=== PATIENT | male | born 1935 | race Caucasian/White ===

== ENCOUNTER 2016-06-28 08:56 | Outpatient (CLI) ==
[2015-12-20 07:21] VITALS: BMI 45.3
[2016-06-28 13:15] LABS: BILIRUBIN,URINE Negative (NEGATIVE); KETONES,URINE Negative (NEGATIVE); LEUKOCYTE ESTERASE ,URINE 2+ (NEGATIVE); NITRITE,URINE Positive (NEGATIVE); PH,URINE 6.5 (5-9); PROTEIN,URINE Negative (NEGATIVE); URINE, BLOOD Trace-intact (NEGATIVE)
[2016-06-28 13:28] LABS: ADD URINE MICROSCOPIC YES
[2016-06-28 13:33] LABS: BACTERIA,URINE 3+ (NOT PRESENT)
== END 2016-06-28 08:57 | disposition home or self-care (01) ==
LOC: LAB 08:56
PROVIDERS: ATTEND General Practice
DX: N39.0 Urinary tract infection, site not specified (principal)
CPT/HCPCS: 81001; 87086; 87186

== ENCOUNTER 2016-07-06 06:28 | Day surgery (SDC) ==
[2015-12-20 07:21] VITALS: BMI 45.3
[2016-07-06] MEDS ORDERED: DIPRIVAN 20 ML VIAL IVP ONE (08:00)
[2016-07-06 09:37] VITALS: BP 136/83; TEMP 97.5
--- NOTE | 2016-07-07 06:53 | OP ---
INDICATIONS FOR PROCEDURE: 80-year-old gentleman with a history of adenomatous polyps removed 3 years ago presents for colonoscopy. He has had a change in his bowel habits with some pencil thin stools. MEDICATIONS: SEE ANESTHESIA NOTES. PROCEDURE: COLONOSCOPY, SNARE POLYPECTOMY. REPORT: The risks, benefits, alternatives and limitations were discussed in detail with the patient. Informed consent was obtained. After adequate sedation was achieved, a digital rectal exam revealed good tone, no masses. The colonoscope was advanced under direct visual guidance. I was able to advance it fairly easily to the proximal transverse colon where I ran out of colon. I did not have the scope looped. This is typical for him. On prior colonoscopy, he was known to have a long redundant colon. With external pressure and position changes I was able to get the scope into the ascending colon. I could see the cecum. I could see two small polyps in the cecum. These were less than 1 cm in size. I would estimate 5 mm and 6 mm in size at most. Despite our efforts and there were multiple efforts, whenever I would slide the snare in the scope to attempt to remove the polyps this would cause the scope to loop and slip backwards. Despite position changes, external pressure with three different assistance, I was not able to remove these polyps. I also could see approximately 6 or 7 mm slightly raised polyp in the ascending colon that I could not get the scope maneuvered to remove it either. I therefore elected to withdraw the scope. I examined the mucosa in a circumferential manner and examined the remaining colon looking for mucosal abnormalities. In the mid and distal transverse colon there were two polyps about 5 mm in size and 6 mm, both slightly raised, both removed by snare technique and placed in the same pathology jar. In the rectum there was a raised 7 mm polyp that I removed by snare technique. There was noted to be diaz diverticulosis throughout the entire colon. On retroflex view of the anal canal there was 1+ internal hemorrhoids. The prep was adequate. There was retained fecal material from the diverticula mostly in the sigmoid and rectum. The patient tolerated the procedure well with stable vital signs and pulse oximetry throughout. IMPRESSION: 1. Three (3) small less than 1 cm polyp in the ascending colon and cecum NOT removed. 2. Three (3) polyps removed from the transverse and rectum. 3. Diaz diverticulosis. 4. 1+ internal hemorrhoids. 5. Morbid obesity with long redundant colon inhibiting colonoscopy technique. RECOMMENDATIONS: 1. Await pathology results from the three polyps removed. 2. I will discuss with the patient and his today options. The polyps are low risk for turning into malignancy in his lifetime but not a zero risk. There are options of having surgical intervention with right hemicolectomy but that is of significant risk as well given his age and morbid obesity. There is a risk of doing nothing or leaving the polyps alone which is low but not zero. There is also the option of reattempting colonoscopy examination after weight loss, which may be the best option. I will discuss these three options with the patient and if he so chooses we will rediscuss in the office in 6 months with the goal of significant weight loss between now and that office visit for reattempt at colonoscopy. CC: DR. LETY GARCIA
== END 2016-07-06 09:50 | disposition home or self-care (01) ==
LOC: SURG 06:28
PROVIDERS: ATTEND Internal Medicine Gastroenterology
DX: Z86.010 Personal history of colon polyps (principal); D12.3 Benign neoplasm of transverse colon; D12.7 Benign neoplasm of rectosigmoid junction; K63.5 Polyp of colon; K57.30 Diverticulosis of large intestine without perforation or abscess without bleeding; Q43.8 Other specified congenital malformations of intestine; R19.4 Change in bowel habit; K64.8 Other hemorrhoids; E66.01 Morbid (severe) obesity due to excess calories; E11.9 Type 2 diabetes mellitus without complications

== ENCOUNTER 2016-07-12 12:02 | Outpatient (CLI) ==
[2015-12-20 07:21] VITALS: BMI 45.3
== END 2016-07-12 12:03 | disposition home or self-care (01) ==
LOC: LAB 12:02
PROVIDERS: ATTEND General Practice
DX: I48.91 Unspecified atrial fibrillation (principal)
CPT/HCPCS: 36415; 80162

== ENCOUNTER 2016-07-14 02:37 | Emergency (ER) ==
[2016-07-14 02:49] VITALS: BP 143/75; TEMP 97.3; BMI 44.0
--- NOTE | 2016-07-14 03:41 | ED.PDOC ---
General ED Provider: Dr. DAKOTA ROLAND Chief Complaint: GI Bleed Stated Complaint: Burak is a 80 year old male who has a history of Atrial fibrillation who is on the last day of Pardaxa and due to start Eliquis today comes to the ER with bright red blood per recturm. This happened twice when went to the bath room. He had a colonoscopy 2 week ago with removal of polyp.states he has a history of hemorroids. Time Seen by Physician: 03:00 Mode of Arrival: Walk-In Information Source: Patient, Family Exam Limitations: No limitations [facility] T[facility] Documentation Reviewed and Agree: Yes GI Complaint Exam - Rectal Complaint/Exam Patient Complains of: Reports: Rectal bleeding Onset/Duration: tonigh Symptoms Are: Still present Timing: Intermittent Initial Severity: Mild Current Severity: Mild Location: Reports: Rectal Character: Reports: Burning, Itching Aggravating: Reports: None Alleviating: Reports: None Associated Signs and Symptoms: Reports: Rectal bleeding, Bright red blood w/ stool. Denies: Black tarry stool Related History: Reports: Hemorrhoids. Denies: Crohn's, STD, Pilonidal Abcess, Perirectal Abcess, Hx of anal intercourse, Foriegn object Rectal Exam: Present: External hemorrhoids, Heme positive Prostate Exam: Size WNL Differential Diagnoses: Hemorrhoids, Other (colon polyps ) Review of Systems - Review Of Systems Constitutional: Reports: No symptoms Eyes: Reports: No symptoms Ears, Nose, Mouth, Throat: Reports: No symptoms Respiratory: Reports: No symptoms Cardiac: Reports: No symptoms GI: Reports: Rectal bleeding. Denies: No symptoms, Abdomen distended, Abdominal pain, Blood streaked bowels, Constipated, Nausea, Poor appetite, Poor fluid intake, Vomiting : Reports: No symptoms Musculoskeletal: Reports: No symptoms Skin: Reports: No symptoms Neurological: Reports: No symptoms Endocrine: Reports: No symptoms Hematologic/Lymphatic: Reports: No symptoms All Other Systems: Reviewed and Negative Past Medical History - Past Medical History Previously Healthy: No Endocrine: Reports: DM 2 Cardiovascular: Reports: Hypertension, A-Fib Respiratory: Reports: None Hematological: Reports: None Gastrointestinal: Reports: GI Bleed, Other (polyps , Hemorroids) Genitourinary: Reports: None Neuro/Psych: Reports: Other Musculoskeletal: Reports: None Cancer: Reports: None Other Pertinent Past Medical History: TORN DETACHED RETINA LEFT EYE - Surgical History General Surgical History: Reports: Other (RETINA LEFT EYE) - Family History Family History: Reports: Unknown - Social History Smoking Status: Former smoker Hx Substance Use: No Alcohol Screening: None - Immunizations Tetanus Shot up to Date: Yes Physical Exam - Physical Exam Appearance: Obese Pain Distress: Mild Neck: Supple Respiratory: Airway patent, Breath sounds clear, Breath sounds equal, Respirations nonlabored Cardiovascular: RRR, Pulses normal, No rub, No murmur GI/: Soft, Nontender, No masses, Bowel sounds normal, No Organomegaly Musculoskeletal: Normal strength, ROM intact, No edema, No calf tenderness Skin: Warm, Dry, Normal color Psychiatric: Anxious Critical Care Note - Critical Care Note Total Time (mins): 0 Course - Course Hematology/Chemistry: 07/14/16 04:05 07/14/16 04:05 Orders, Labs, Meds: Lab Review 07/14/16 04:05 WBC 9.07 RBC 4.15 L Hgb 12.4 L Hct 38.6 L MCV 93.0 MCH 29.9 MCHC 32.1 RDW Coeff of Sam 14.9 H Plt Count 195 Immature Gran % (Auto) 1.0 Neut % (Auto) 71.0 Lymph % (Auto) 19.1 [place] % (Auto) 7.2 Eos % (Auto) 1.0 Baso % (Auto) 0.7 Immature Gran # (Auto) 0.1 Neut # 6.5 Lymph # 1.7 [place] # 0.7 Eos # 0.1 Baso # 0.1 PT 13.2 H INR 1.28 APTT 39.9 Sodium 138 Potassium 4.3 Chloride 105 Carbon Dioxide 22 L Anion Gap 15.3 BUN 22 H Creatinine 1.00 Estimated GFR (MDRD) 72.00 BUN/Creatinine Ratio 22.00 Glucose 126 H Calcium 9.1 Total Bilirubin 0.69 AST 28 ALT 49 Alkaline Phosphatase 36 L Total Protein 6.7 Albumin 3.6 Globulin 3.1 Albumin/Globulin Ratio 1.16 Stl Occult Blood (IFOB) Positive Stool Occult Blood #2 No specimen received Stool Occult Blood #3 No specimen received Orders Category Date Time Status CBC W/ AUTO DIFF Stat LAB 07/14/16 04:05 Completed CMP [COMPREHENSIVE METABOLIC PANEL] Stat LAB 07/14/16 04:05 Completed OCCULT BLOOD, STOOL Stat LAB 07/14/16 04:05 Completed PT WITH INR Stat LAB 07/14/16 04:05 Completed PTT [PARTIAL THROMBOPLASTIN TIME] Stat LAB 07/14/16 04:05 Completed Hydrocortisone Acetate [Anucort-Hc] MEDS 07/14/16 04:14 Discontinued 1 supp RC ONCE STA Medications Discontinued Medications Generic Name Dose Route Start Last Admin Trade Name Brielle PRN Reason Stop Dose Admin Hydrocortisone Acetate 1 supp 07/14/16 04:14 07/14/16 04:17 Anucort-Hc RC 07/14/16 04:15 1 supp ONCE STA Administration Vital Signs: Temp Pulse Resp BP Pulse Ox 07/14/16 02:40 97.3 F L 83 24 143/75 H 98 Departure - Departure Time of Disposition: 04:45 Disposition: HOME SELF-CARE Discharge Problem: Gastrointestinal hemorrhage, External bleeding hemorrhoids Instructions: Rectal Bleeding (ED) Condition: Fair Pt referred to PMD for follow-up: Yes (in the Morning ) Additional Instructions: Follow up with your PCP in the morning. Stop taking Aspirin and pradaxa or Eloquis until seen by PCP Use Hemorrhoidal suppositories over the counter. Allergies/Adverse Reactions: Allergies codeine Adverse Reaction (Verified 07/14/16 02:49) gatifloxacin [From Tequin] Adverse Reaction (Verified 07/14/16 02:49) phenylbutazone [From Butazolidin] Adverse Reaction (Verified 07/14/16 02:49) Home Medications: Ambulatory Orders Aspirin [Aspirin EC] 81 mg PO DAILY 01/31/13 Diltiazem HCl [Cardizem] 60 mg PO BID 01/31/13 Multivitamin [Multi Vitamin Daily] 1 tab PO DAILY 01/31/13 Sitagliptin Phos/Metformin HCl [Janumet 50-500 mg Tablet] 1 tab PO BID 01/31/13 Sotalol HCl [Sotalol] 40 mg PO BID 01/31/13 Vitamin B Complex 1 tab PO DAILY 01/31/13 Folic Acid 5 tab PO DAILY 06/04/13 Torsemide 10 mg PO DAILY 04/07/15 Valsartan [Diovan] 60 mg PO BID tab-cap 07/03/15 Oxybutynin Chloride [Ditropan Xl] 10 mg PO DAILY 12/20/15 Dabigatran Etexilate Mesylate [Pradaxa] 150 mg PO Q12HR 07/14/16 Disposition Discussed With: Patient, Family
[2016-07-14 04:06] LABS: BASOPHILS # (AUTO) 0.1 K/uL (0-0.2); BASOPHILS % (AUTO) 0.7 % (0.0-3.0); EOSINOPHILS # (AUTO) 0.1 K/ul (0.0-0.7); HEMATOCRIT 38.6 % (42.0-52.0); HEMOGLOBIN 12.4 g/dl (14.0-18.0); LYMPHOCYTES # (AUTO) 1.7 K/uL (0.60-3.4); LYMPHOCYTES % (AUTO) 19.1 (10.0-50.0); MEAN CORPUSCULAR HEMOGLOBIN 29.9 pg (27.0-31.0); MEAN CORPUSCULAR HGB CONC 32.1 (31.8-35.4); MONOCYTES # (AUTO) 0.7 K/uL (0.4-2.0); MONOCYTES % (AUTO) 7.2 (0-10); NEUTROPHILS # (AUTO) 6.5 K/ul (2.0-6.9); PLATELET COUNT 195 10^3/uL (140-440); RED BLOOD COUNT 4.15 10^6/ul (4.70-6.10); WHITE BLOOD COUNT 9.07 K/ul (4.2-10.2)
[2016-07-14 04:08] LABS: OCCULT BLOOD INTERNAL QC 1 INTERNAL QC VALID; OCCULT BLOOD INTERNAL QC 2 INTERNAL QC VALID; OCCULT BLOOD INTERNAL QC 3 INTERNAL QC VALID; OCCULT BLOOD SAMPLE 1 POSITIVE (NEGATIVE); OCCULT BLOOD SAMPLE 2 NO SPECIMEN RECEIVED (NEGATIVE); OCCULT BLOOD SAMPLE 3 NO SPECIMEN RECEIVED (NEGATIVE)
[2016-07-14] MEDS ORDERED: ANU MED RC STA (04:08)
[2016-07-14] MEDS ORDERED: ANUCORT-HC RC STA (04:14)
[2016-07-14 04:20] LABS: PARTIAL THROMBOPLASTIN TIME 39.9 SEC (23.9-40.0); PROTHROMBIN TIME 13.2 SEC (9.3-11.0)
[2016-07-14 04:27] LABS: ALBUMIN 3.6 g/dL (3.4-5.0); ALBUMIN/GLOBULIN RATIO 1.16; ANION GAP 15.3; BILIRUBIN,TOTAL 0.69 mg/dL (0.00-1.20); CALCIUM 9.1 mg/dL (8.2-10.2); POTASSIUM 4.3 mmol/L (3.5-5.1); TOTAL PROTEIN 6.7 g/dL (5.8-8.1)
[2016-07-14] MEDS ORDERED: ANUCORT-HC RC ONE (05:31)
== END 2016-07-14 05:06 | disposition home or self-care (01) ==
LOC: ED 02:37
DX: K92.2 Gastrointestinal hemorrhage, unspecified (principal); K64.4 Residual hemorrhoidal skin tags; I48.91 Unspecified atrial fibrillation; E11.9 Type 2 diabetes mellitus without complications; Z79.01 Long term (current) use of anticoagulants; Z79.899 Other long term (current) drug therapy
CPT/HCPCS: 36415; 80053; 82272; 85025; 85610; 85730; 99283

== ENCOUNTER 2016-07-19 09:19 | Outpatient (CLI) | END 2016-07-19 09:20 | disposition home or self-care (01) | LOC: CAR 09:19 | PROVIDERS: ATTEND General Practice | DX: I48.91 Unspecified atrial fibrillation (principal); R00.1 Bradycardia, unspecified | CPT/HCPCS: 93005; 93010 ==

== ENCOUNTER 2016-08-03 11:19 | Outpatient (CLI) ==
[2016-08-03 13:45] LABS: BASOPHILS % (AUTO) 0.1 % (0.0-3.0); HEMATOCRIT 38.8 % (42.0-52.0); HEMOGLOBIN 12.4 g/dl (14.0-18.0); IMMATURE GRANULOCYTE % (AUTO) 0.7 % (0.0-5.0); LYMPHOCYTES # (AUTO) 0.7 K/uL (0.60-3.4); LYMPHOCYTES % (AUTO) 3.8 (10.0-50.0); MEAN CORPUSCULAR HEMOGLOBIN 30.3 pg (27.0-31.0); MEAN CORPUSCULAR VOLUME 94.9 fl (80.0-94.0); MONOCYTES # (AUTO) 0.7 K/uL (0.4-2.0); MONOCYTES % (AUTO) 3.7 (0-10); NEUTROPHILS # (AUTO) 16.5 K/ul (2.0-6.9); NEUTROPHILS % (AUTO) 91.7; PLATELET COUNT 179 10^3/uL (140-440); RED BLOOD COUNT 4.09 10^6/ul (4.70-6.10); WHITE BLOOD COUNT 17.95 K/ul (4.2-10.2)
[2016-08-03 13:46] LABS: FLU INTERNAL QC INTERNAL QC VALID; RAPID FLU A NEGATIVE (NEGATIVE); RAPID FLU B NEGATIVE (NEGATIVE)
[2016-08-03 14:23] LABS: ALBUMIN 3.8 g/dL (3.4-5.0); ALBUMIN/GLOBULIN RATIO 1.03; BILIRUBIN,TOTAL 1.22 mg/dL (0.00-1.20); BUN/CREATININE RATIO 10.3; CALCIUM 9.6 mg/dL (8.2-10.2); CREATININE 0.97 mg/dL (0.60-1.10); TOTAL PROTEIN 7.5 g/dL (5.8-8.1)
[2016-08-03 23:15] VITALS: BMI 41.9
== END 2016-08-03 11:20 | disposition home or self-care (01) ==
LOC: LAB 11:19
PROVIDERS: ATTEND Nurse Practitioner Family
DX: E11.9 Type 2 diabetes mellitus without complications (principal); E88.81 Metabolic syndrome and other insulin resistance; R50.9 Fever, unspecified
CPT/HCPCS: 36415; 80053; 82150; 83690; 85025; 87804

== ENCOUNTER 2016-08-03 20:20 | Inpatient (IN) ==
[2016-08-03] MEDS ORDERED: POTASSIUM CHLORIDE 10 MEQ VIAL-ADDITIVE ONLY 20 MEQ in SODIUM CHLORIDE 1,000 ML IV SCH (21:30)
--- NOTE | 2016-08-03 21:46 | CT ---
Exam: CT of the chest without contrast History: Pneumonia Technique: [address] of the chest without intravascular contrast FINDINGS: Consolidative pneumonia noted in the left lower lobe. Small focus of consolidation of th e medial right upper lobe. Indeterminate 6.7-mm nodule of the right middle lobe. The right main pu lmonary artery diameter is 4 cm. Atherosclerotic calcification of the aorta without aneurysmal dila tion. No pathologic lymph node enlargement of the mediastinum. No acute findings of the chest wall soft tissues. No acute findings of the upper abdomen. Impression: 1. Consolidative pneumonia of the left lower lobe and medial right upper lobe 2. Indeterminate right middle lobe 6.7 mm nodule possibly related to pneumonitis. Consensus Recomen dations for nodule 6-8 mm: Low risk patient: Initial follow-up at 6-12 months then at 18-24 months if unchanged High risk patient: Inital follow-up at 3-6 months then at 9-12 months and 24 months if no change
[2016-08-03] MEDS ORDERED: POTASSIUM CHLORIDE 20 MEQ VIAL-ADDITIVE ONLY IV ONE (21:47)
[2016-08-03 22:57] LABS: BILIRUBIN,URINE 1+ (NEGATIVE); KETONES,URINE Negative (NEGATIVE); LEUKOCYTE ESTERASE ,URINE Negative (NEGATIVE); NITRITE,URINE Negative (NEGATIVE); PH,URINE 5.5 (5-9); PROTEIN,URINE 1+ (NEGATIVE); URINE, BLOOD Negative (NEGATIVE)
[2016-08-03 23:00] LABS: ADD URINE MICROSCOPIC YES
[2016-08-03 23:01] LABS: BACTERIA,URINE TRACE (NOT PRESENT)
[2016-08-03 23:15] VITALS: BMI 41.9
[2016-08-04] MEDS ORDERED: ROCEPHIN ONE (03:56)
[2016-08-04] MEDS ORDERED: ROCEPHIN 2 GM in SODIUM CHLORIDE 100 ML IV SCH (04:00)
[2016-08-04] MEDS ORDERED: SODIUM CHLORIDE 100 ML IV ONE (04:02)
[2016-08-04 04:40] LABS: BASOPHILS % (AUTO) 0.2 % (0.0-3.0); EOSINOPHILS % (AUTO) 0.2 % (0.0-7.0); HEMATOCRIT 31.7 % (42.0-52.0); HEMOGLOBIN 10.3 g/dl (14.0-18.0); IMMATURE GRANULOCYTE % (AUTO) 1.4 % (0.0-5.0); LYMPHOCYTES # (AUTO) 1.8 K/uL (0.60-3.4); LYMPHOCYTES % (AUTO) 10.2 (10.0-50.0); MEAN CORPUSCULAR HEMOGLOBIN 30.5 pg (27.0-31.0); MEAN CORPUSCULAR HGB CONC 32.5 (31.8-35.4); MEAN CORPUSCULAR VOLUME 93.8 fl (80.0-94.0); MONOCYTES # (AUTO) 1.1 K/uL (0.4-2.0); MONOCYTES % (AUTO) 6.4 (0-10); NEUTROPHILS # (AUTO) 14.6 K/ul (2.0-6.9); NEUTROPHILS % (AUTO) 81.6; PLATELET COUNT 154 10^3/uL (140-440); RED BLOOD COUNT 3.38 10^6/ul (4.70-6.10); WHITE BLOOD COUNT 17.82 K/ul (4.2-10.2)
[2016-08-04 05:07] LABS: ANION GAP 12.7; BILIRUBIN,TOTAL 0.86 mg/dL (0.00-1.20); BUN/CREATININE RATIO 17.24; CALCIUM 8.8 mg/dL (8.2-10.2); CREATININE 0.87 mg/dL (0.60-1.10); POTASSIUM 3.7 mmol/L (3.5-5.1)
[2016-08-04] MEDS: DEMADEX PO SCH (05:41)
[2016-08-04] MEDS: JANUVIA PO SCH ×2 (08:54→17:25)
[2016-08-04] MEDS: DIOVAN PO SCH ×2 (08:54→21:02)
[2016-08-04] MEDS: GLUCOPHAGE PO SCH ×2 (08:55→17:25)
[2016-08-04] MEDS: BETAPACE PO SCH ×2 (08:56→21:01)
[2016-08-04] MEDS: BALANCED B-100 PO SCH (08:56)
[2016-08-04] MEDS: PRADAXA PO SCH ×2 (08:57→20:59)
[2016-08-04] MEDS: PROSCAR PO SCH (08:57)
[2016-08-04] MEDS: MULTIVITAMIN PO SCH (08:57)
[2016-08-04] MEDS: CARDIZEM PO SCH ×2 (08:57→21:03)
[2016-08-04] MEDS: FOLIC ACID PO SCH (08:58)
[2016-08-04] MEDS ORDERED: TORSEMIDE 10 MG PO SCH (09:00)
[2016-08-04] MEDS ORDERED: NON-FORMULARY MEDICATION (Multivitamin [Multi-Vitamin Daily] 1 TAB) PO SCH (09:00)
[2016-08-04] MEDS ORDERED: [UNRECOGNIZED DRUG - OTHER] PO SCH (09:00)
[2016-08-04] MEDS ORDERED: PROSCAR PO SCH (09:00)
[2016-08-04] MEDS ORDERED: FOLIC ACID PO SCH (09:00)
[2016-08-04] MEDS ORDERED: DILTIAZEM HCL 60 MG PO SCH ×16 (09:00)
[2016-08-04] MEDS ORDERED: SITAGLIPTIN PHOS PO SCH (09:00)
[2016-08-04] MEDS ORDERED: METFORMIN HCL PO SCH (09:00)
[2016-08-04] MEDS ORDERED: POTASSIUM CHLORIDE 20 MEQ VIAL-ADDITIVE ONLY IV ONE (12:13)
[2016-08-04] MEDS: POTASSIUM CHLORIDE 20 MEQ VIAL-ADDITIVE ONLY 20 MEQ in SODIUM CHLORIDE 1,000 ML IV SCH (12:15)
[2016-08-04] MEDS: LIPITOR PO SCH (20:59)
[2016-08-04] MEDS: ROCEPHIN 2 GM in SODIUM CHLORIDE 100 ML IV SCH (20:59)
[2016-08-04] MEDS ORDERED: ASPIRIN EC PO SCH (21:00)
[2016-08-05] MEDS: POTASSIUM CHLORIDE 20 MEQ VIAL-ADDITIVE ONLY 20 MEQ in SODIUM CHLORIDE 1,000 ML IV SCH ×2 (01:13→14:11)
[2016-08-05] MEDS: DEMADEX PO SCH (06:06)
[2016-08-05 07:43] LABS: BASOPHILS % (AUTO) 0.2 % (0.0-3.0); EOSINOPHILS # (AUTO) 0.1 K/ul (0.0-0.7); EOSINOPHILS % (AUTO) 0.6 % (0.0-7.0); HEMATOCRIT 34.4 % (42.0-52.0); HEMOGLOBIN 10.9 g/dl (14.0-18.0); IMMATURE GRANULOCYTE % (AUTO) 0.8 % (0.0-5.0); LYMPHOCYTES # (AUTO) 1.2 K/uL (0.60-3.4); LYMPHOCYTES % (AUTO) 10.1 (10.0-50.0); MEAN CORPUSCULAR HEMOGLOBIN 29.4 pg (27.0-31.0); MEAN CORPUSCULAR HGB CONC 31.7 (31.8-35.4); MEAN CORPUSCULAR VOLUME 92.7 fl (80.0-94.0); MONOCYTES # (AUTO) 0.7 K/uL (0.4-2.0); MONOCYTES % (AUTO) 6.1 (0-10); NEUTROPHILS % (AUTO) 82.2; PLATELET COUNT 173 10^3/uL (140-440); RED BLOOD COUNT 3.71 10^6/ul (4.70-6.10); WHITE BLOOD COUNT 12.18 K/ul (4.2-10.2)
[2016-08-05 07:55] LABS: ALBUMIN 3.2 g/dL (3.4-5.0); ALBUMIN/GLOBULIN RATIO 0.89; ANION GAP 14.1; BILIRUBIN,TOTAL 0.45 mg/dL (0.00-1.20); BUN/CREATININE RATIO 17.64; CALCIUM 8.9 mg/dL (8.2-10.2); CREATININE 0.85 mg/dL (0.60-1.10); POTASSIUM 4.1 mmol/L (3.5-5.1); TOTAL PROTEIN 6.8 g/dL (5.8-8.1)
[2016-08-05] MEDS: BALANCED B-100 PO SCH (10:21)
[2016-08-05] MEDS: CARDIZEM PO SCH ×2 (10:22→21:25)
[2016-08-05] MEDS: PRADAXA PO SCH (10:22)
[2016-08-05] MEDS: GLUCOPHAGE PO SCH ×2 (10:23→17:52)
[2016-08-05] MEDS: PROSCAR PO SCH (10:23)
[2016-08-05] MEDS: FOLIC ACID PO SCH (10:23)
[2016-08-05] MEDS: DIOVAN PO SCH ×2 (10:23→21:25)
[2016-08-05] MEDS: BETAPACE PO SCH ×2 (10:23→21:28)
[2016-08-05] MEDS: MULTIVITAMIN PO SCH (10:24)
[2016-08-05] MEDS: JANUVIA PO SCH ×2 (10:24→17:53)
[2016-08-05] MEDS ORDERED: DIOVAN PO STA (18:38)
[2016-08-05] MEDS: ROCEPHIN 2 GM in SODIUM CHLORIDE 100 ML IV SCH (21:24)
[2016-08-05] MEDS: LIPITOR PO SCH (21:24)
[2016-08-05] MEDS: AMBIEN PO SCH (21:25)
[2016-08-06] MEDS ORDERED: POTASSIUM CHLORIDE 20 MEQ VIAL-ADDITIVE ONLY IV ONE (03:26)
[2016-08-06] MEDS: POTASSIUM CHLORIDE 20 MEQ VIAL-ADDITIVE ONLY 20 MEQ in SODIUM CHLORIDE 1,000 ML IV SCH ×2 (03:39→15:57)
[2016-08-06] MEDS: DEMADEX PO SCH (05:32)
[2016-08-06 06:22] LABS: BASOPHILS % (AUTO) 0.3 % (0.0-3.0); EOSINOPHILS # (AUTO) 0.1 K/ul (0.0-0.7); EOSINOPHILS % (AUTO) 0.5 % (0.0-7.0); HEMATOCRIT 35.8 % (42.0-52.0); HEMOGLOBIN 11.4 g/dl (14.0-18.0); IMMATURE GRANULOCYTE % (AUTO) 1.9 % (0.0-5.0); LYMPHOCYTES # (AUTO) 1.1 K/uL (0.60-3.4); LYMPHOCYTES % (AUTO) 11.9 (10.0-50.0); MEAN CORPUSCULAR HEMOGLOBIN 29.2 pg (27.0-31.0); MEAN CORPUSCULAR HGB CONC 31.8 (31.8-35.4); MEAN CORPUSCULAR VOLUME 91.8 fl (80.0-94.0); MONOCYTES # (AUTO) 0.7 K/uL (0.4-2.0); MONOCYTES % (AUTO) 7.4 (0-10); NEUTROPHILS # (AUTO) 7.3 K/ul (2.0-6.9); PLATELET COUNT 177 10^3/uL (140-440); WHITE BLOOD COUNT 9.42 K/ul (4.2-10.2)
[2016-08-06 06:45] LABS: ALBUMIN 3.2 g/dL (3.4-5.0); ALBUMIN/GLOBULIN RATIO 0.84; ANION GAP 13.2; BILIRUBIN,TOTAL 0.56 mg/dL (0.00-1.20); BUN/CREATININE RATIO 11.76; CALCIUM 9.3 mg/dL (8.2-10.2); CREATININE 0.85 mg/dL (0.60-1.10); POTASSIUM 4.2 mmol/L (3.5-5.1)
[2016-08-06] MEDS: FOLIC ACID PO SCH (08:40)
[2016-08-06] MEDS: PROSCAR PO SCH (08:40)
[2016-08-06] MEDS: ASPIRIN CHEWABLE PO SCH (08:40)
[2016-08-06] MEDS: BETAPACE PO SCH ×2 (08:41→20:28)
[2016-08-06] MEDS: DIOVAN PO SCH ×2 (08:41→20:31)
[2016-08-06] MEDS: BALANCED B-100 PO SCH (08:41)
[2016-08-06] MEDS: CARDIZEM PO SCH ×2 (08:41→20:28)
[2016-08-06] MEDS: GLUCOPHAGE PO SCH ×2 (08:42→17:15)
[2016-08-06] MEDS: JANUVIA PO SCH ×2 (08:42→17:15)
[2016-08-06] MEDS: MULTIVITAMIN PO SCH (08:42)
[2016-08-06] MEDS ORDERED: NON-FORMULARY MEDICATION (Dulaglutide [Trulicity] 0.75 MG) SUBCUT SCH (09:00)
[2016-08-06] MEDS: ROCEPHIN 2 GM in SODIUM CHLORIDE 100 ML IV SCH (20:27)
[2016-08-06] MEDS: LIPITOR PO SCH (20:29)
[2016-08-06] MEDS: AMBIEN PO SCH (20:32)
[2016-08-06] MEDS: PRADAXA PO SCH (20:32)
[2016-08-07] MEDS: DEMADEX PO SCH (05:35)
[2016-08-07] MEDS: ASPIRIN CHEWABLE PO SCH (09:22)
[2016-08-07] MEDS: FOLIC ACID PO SCH (09:22)
[2016-08-07] MEDS: PRADAXA PO SCH (09:22)
[2016-08-07] MEDS: DIOVAN PO SCH (09:23)
[2016-08-07] MEDS: MULTIVITAMIN PO SCH (09:23)
[2016-08-07] MEDS: BALANCED B-100 PO SCH (09:23)
[2016-08-07] MEDS: CARDIZEM PO SCH (09:23)
[2016-08-07] MEDS: PROSCAR PO SCH (09:23)
[2016-08-07] MEDS: JANUVIA PO SCH (09:23)
[2016-08-07] MEDS: BETAPACE PO SCH (09:24)
[2016-08-07] MEDS: GLUCOPHAGE PO SCH (09:24)
[2016-08-07 14:03] VITALS: BP 157/85; TEMP 96.8
[2016-08-07] MEDS: ROCEPHIN 2 GM in SODIUM CHLORIDE 100 ML IV SCH (14:43)
--- NOTE | 2016-08-09 08:53 | PN ---
DATE OF VISIT: 08/04/16 SUBJECTIVE: The patient is alert and claimed to be feeling some better. Temperature had remained normal since admission till 5:29pm 08/04/16. OBJECTIVE: Temperature at that time is 97.1, pulse 83, blood pressure 161/88, respiratory 20 and oxygen saturation 97% on room air. The patient still has rales more on the left lower bases. LUNGS: Breath sounds are still markedly diminished more on the right side. CT of the chest showed pneumonia of the left lower lobe and then medial right upper lobe. There are nodules but are small 6-7mm and are indeterminate. The patient was treated with Rocephin early in the morning of 08/04/16 at 2gram every day. No Azithromycin was added since there was possibility of prolonging QT intervals. He didn't eat very much on 08/04. His oral intake was adequate at 1,800cc. The IV was 1808. CBC now shows a decreasing WBC 12,180 from 17,820. Repeat CMP is unremarkable. Initial one had no remarkable abnormalities also. PLAN: The patient will be continued on the same medication plus the same intervenous fluids. This patient is encouraged to be mobile. I did tell him that I will asked physical therapy to walk him but he told me that his would be about to do that. RADHA
--- NOTE | 2016-08-09 09:17 | PN ---
DATE OF VISIT: 08/05/16 SUBJECTIVE: The patient today is alert and feeling some better. I had a conversation with him in the presents of his . OBJECTIVE: Vital signs: Temperature 99.1, pulse 85, blood pressure 192/98, respiratory rate 16 and oxygen saturation 100% at room air. He did eat 100% of his food. LUNGS: Still has rales in the left lower lobe. Breath sounds are still markedly diminished on the right and there is some air exchange. I couldn't hear rales on the right because of the very poor air exchange. HEART: Again irregular but not tachycardic. The patient did complain of bloody sputum X2 and so I discontinued the Pradaxa. I did resume the Aspirin 81mg since I had discontinued earlier. We will see if he continues to have the problem of hemoptysis and if he does we Pradaxa may not be reinstituted. If it is resolved then this patient will be placed on 75mg twice a day instead of 150mg since he is going to be 81 year old soon. We still also need to get a followup chest CT without contrast before we could entertain on discharging him home. RADHA
--- NOTE | 2016-08-09 09:18 | PN ---
DATE OF VISIT: 08/06/16 SUBJECTIVE: The patient today is alert, oriented times 4. His general appearance is much better and his color is good. He is not dyspneic or tachypneic in sitting posture. OBJECTIVE: Blood pressure elevated 5:31pm of 217/17. Blood pressure reading was 186/88, temperature 97.1, pulse 88, respiratory rate 16 and oxygen saturation 95% at room air. His fluid intake is adequate, oral is 2790 and urine output is 1750. Meals are 100%. HEART: Irregular but not tachycardic. LUNGS: Breath sounds are still diminished more on the right side. Still has some rales in left lower base but no wheezing. The patient claims to be feeling better. The Pradaxa is resumed at 75mg twice a day instead of 150mg. This patient had two occasions of hemoptysis. The 81mg of Aspirin was resumed with 75mg of Pradaxa twice a day. His CBC now showed a normal WBC 9,420. It was high at 17,820 on 08/04/16. CMP is normal. The C- reactive protein is 68.2, elevated. Procalcitonin as return to normal yesterday 0.69. These results were discussed with the patient and his . I did informed that he maybe going home tomorrow but I would still examine him before I would discharge him. I did not see any particular use a repeat CT at this time since it would clearly not show any changes but his clinical duration and trajectory has shown improvement and his temperature is now normal and his appetite has returned and his color is good and the breath sounds are heard better in both lung aguirre. Pradaxa is resumed today at 75ml twice a day. [facility]
[2016-08-09 19:08] LABS: CHLAMYDIA PNEUMONIAE IGM <1:10 (Neg:<1:10)
--- NOTE | 2016-08-10 10:28 | HP ---
CHIEF COMPLAINT: Fever, chills with cough. Short of breath when walking and climbing. HISTORY OF PRESENT ILLNESS: The patient, on the night before presentation to the clinic, had occasional cough, productive with chills and fever. The temperature was recorded at 102. The patient was prescribed Amoxicillin. The patient had a CBC and CMP and the CBC showed 17,000 plus WBC with increased neutrophils. Aye Shankar, who did see him initially, discussed the case with me. I did touch base with the patient and the patient had another rise of temperature at 103 plus. The fever had been controlled with Tylenol every 3 to 4 hours. Because of the extreme weakness that this patient had exhibited and maybe the weakness is secondary to the febrile illness and maybe some cerebral encephalopathy, this patient was then advised admission to the hospital with a diagnosis of pneumonia, acute febrile condition with extreme weakness. PAST PERSONAL HISTORY: The patient had colonoscopy about two weeks ago with polypectomy. He was seen at the emergency room on 07/14/16 because of GI bleed. The patient had bright red blood. He was discharged with a diagnosis of bleeding from the hemorrhoids. No rectal examination was recorded in the emergency room. The patient on the following day went to see Dr. Sagastume and was subsequently admitted. The patient had stayed for about three days in the hospital and was discharged. He was told that GI bleeding was not unusual for people who had polypectomy. Sometimes the scabs will come off and produce some bleeding. The patient also had AF on medication. He had returned to drinking coffee about one or two cups a day. The patient's dyspnea was exertional, climbing stairs or walking a distance. He is known to have type II diabetes mellitus. He is also diagnosed with sleep apnea and on C-PAP. He had been experiencing elevated BMI for years. This patient was known to have chronic lung problems in the past. FAMILY HISTORY: No relevant history in the family to the present problem. SOCIAL HISTORY: The patient is and resides with his . His children are grown. He retired from [employer] several years ago. He stopped smoking several years ago and no alcoholic beverages. MEDICATIONS: Prior to this admission consisted of: Vitamin B complex one tablet daily Multivitamin one daily Aspirin 81 mg daily Sotalol 40 mg twice a day Diltiazem 120 60 mg twice a day Janumet 50/500 mg one twice a day Folic Acid 0.8 mg tablet five tablets daily Lipitor 5 mg daily Trulicity 0.75 mg per 0.5 cc pen injector weekly Pradaxa 150 mg twice a day Valsartan 80 mg twice a day Finasteride 5 mg daily ALLERGIES: Codeine, Tequin and Phenylbutazone. The patient had some diaphoresis with Tequin and was admitted to the hospital in [place] since he was in the hallway and the nurse was concerned. He felt he might have had an OR. The work up was negative and the symptomatology was attributed the the Tequin. REVIEW OF SYSTEMS: CONSTITUTIONAL: The patient is alert with fever and chills and extreme fatigue and weakness, difficulty standing. 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 He has movement of all extremities. No headaches. VISUAL: Denies any double vision, blurred vision or transient loss of vision. AUDITORY: The patient's hearing is decreased. He denies any tinnitus or pain or drainage. RESPIRATORY: The patient has cough that is somewhat productive. The patient has shortness of breath with exertion, such as walking or climbing stairs. CARDIOVASCULAR: Denies any chest pain anteriorly or posteriorly. GASTROINTESTINAL: Appetite is decreased, but no nausea or vomiting. GENITOURINARY: The patient does have frequency, but denies any burning on urination. MUSCULOSKELETAL: The patient has extreme weakness in both lower extremities and it is difficult for him to stand for a few minutes. INTEGUMENT: No rash or pruritus. ENDOCRINE: The patient is a type II diabetic, but has no polydipsia or polyuria. HEMATOLOGIC: No history of prolonged bleeding. PSYCHIATRIC: The patient's affect is down, probably because he doesn't feel well. PHYSICAL EXAMINATION: GENERAL: 80 year old male soon to be 81 in about a month and a half is admitted to the hospital because of cough, fever, chills, shortness of breath and extreme weakness of both lower extremities. He expresses that he just doesn't feel good or well. VITAL SIGNS: Temperature on admission at 9:10 p.m. on 08/03/16 was 96.8, orally , pulse 68, blood pressure 123/71, respiratory rate 20, oxygen saturation 97 at room air. 6', 309 pounds, 4.8 ounces, BMI 41.9. HEAD: Unremarkable. FACE: Symmetrical and equal with no facial weakness and no significant tenderness to palpation under pressure in the frontal or maxillary sinus areas. EYES: Pupils equal/reactive to light about 3 mm in size. Conjunctivae slightly pale. Sclerae not icteric. MOUTH: Unremarkable. THROAT: No inflammation, no tumors or exudate. NECK: No masses. No bruit. No tenderness. No rigidity. CHEST: Symmetrical and equal with acceptable expansion. LUNGS: Breath sounds are markedly diminished with rales more on the left lower base. The breath sounds are more diminished in the right side. HEART: Audible and irregular, but not tachycardic. This patient is known to have atrial fibrillation on anticoagulation medication. No murmurs. ABDOMEN: Protuberant, soft with no remarkable tenderness. No guarding. Bowel sounds are active. No masses palpable. LOWER EXTREMITIES: Essentially symmetrical and equal with no significant edema in the legs and ankles. UPPER EXTREMITIES: Symmetrical and equal. ASSESSMENT: 1. PNEUMONITIS 2. BACTEREMIA, POSSIBLE. 3. EXERTIONAL DYSPNEA, SECONDARY TO #1 AND POSSIBLY DECONDITIONING. 4. TYPE II DIABETES MELLITUS 5. HISTORY OF ATRIAL FIBRILLATION 6. HISTORY OF HYPERTENSION PLAN: 1. CT of the chest without contrast. 2. Blood cultures. 3. Continue home medications. 4. No Tylenol to be given, unless the temperature is beyond 103. MTDD
--- NOTE | 2016-08-10 11:18 | DS ---
PATIENT IDENTIFICATION: 80 year old male was admitted 08/03/16 because of cough, chills and fever the night before. His temperature spiked beyond 102. The patient was seen by the nurse practitioner and was prescribed Amoxicillin 500 mg to be taken three times a day. The patient was markedly weak while he was in the clinic and because of the recurrence of the fever and the continued weakness that admission was felt necessary and so the patient was admitted to the hospital with a diagnosis of pneumonitis. HOSPITAL COURSE: Examination revealed an alert individual who is responsive, but seemingly drowsy and tired. He had been receiving Tylenol every three to four hours at home. His vital signs on admission showed a temperature of 96.8, pulse rate of 68, blood pressure 123/71, oxygen saturation 97 at room air. This patient's CT showed left lower lobe pneumonitis in the medial area of the right upper lobe. He also had scattered nodules that are 6.7 cm in diameter. Radiologist recommended a repeat in one year and this was communicated to the patient, as well as his . The patient continued to improve and his blood pressure was lower on 08/04/16 ranging from 96/49 to about 102/52. However, in the evening the blood pressure did begin to rise 161/88. His pulse remained essentially normal at 83. Respiration at 20, oxygen saturation 97 at room air. His temperature remained normal, except on 08/05/16 where it was recorded at 99.1, blood pressure of 192/98, both automatic and manual. Two hours later the blood pressure was still 190/100. The oxygen saturation was 100 at room air. His general appearance is still unchanged. The blood pressure medication was increased to 160 mg of Diovan twice a day, instead of 80 twice a day. The other medication dosages were left in place. The patient had no further hemoptysis and Pradaxa was given at 75 mg twice a day, plus Aspirin. The patient's blood pressure had fluctuated from normal to elevated on 08/06/16. The blood pressure on 08/07/16 showed 138/81 and 147/73. The last one, vital signs at 2 p.m. on 08/07/16 before discharge showed a temperature of 96.8, pulse rate 77, blood pressure 157/85, respiratory rate 20, oxygen saturation 95 at room air. This patient has obstructive sleep apnea and uses his C-PAP while in the hospital intermittently. The patient at discharge was alert, ambulatory, color is good and he claims to be feeling better. LUNGS: Has better air exchange and more on the right. He still has a few rales at the left lower base. Breath sounds are still diminished in the right upper lobe. No wheezing. HEART: Remained irregular, but not tachycardic. The patient had some questions and I tried to answer it and also repeated the instructions on what to do at home. He has an appointment August 18, 2016 to see me at the office and I felt that probably is appropriate for me to see him post hospitalization on that day. He will given a dose of Rocephin before going home and so he should start his antibiotic tomorrow about the time that the IV medication was completed and should take it every six hours. His medication, Amoxicillin 500 mg was prescribed by the nurse practitioner. The Pradaxa will be given 150 in the morning and 75 in the evening and so a prescription of #30 75 mg capsules of Pradaxa was called into [facility]. No refill. There was a question as to whether he would be on Eliquis and that is not resolved at this time. The patient had decided not to change his medication and we will try to wait until the follow up as to whether we have to change it to Eliquis if that is the preference for the insurance. His Diovan or Valsartan is increased to 160 mg twice a day from 80 mg twice a day. I did inform them that if the blood pressure is down to 120 and persisted to be in that level that they can reduce the Diovan back to 80 twice a day. I advised them to buy Mucinex plain and take it at 1200 mg twice a day with plenty of liquids. I should see him on 06/2016 and before if there is any concerns. These instructions were repeated. He should resume the other medications that he had. FINAL DIAGNOSES: 1. LEFT LOWER LOBE PNEUMONITIS 2. RIGHT UPPER LOBE PNEUMONITIS 3. MULTIPLE SUBCENTIMETER PULMONARY NODULES 4. DIABETES MELLITUS IN GOOD CONTROL 5. EPISODES TIMES TWO OF HEMOPTYSIS, SMALL AMOUNT OF BLOOD IN THE SPUTUM 6. ATRIAL FIBRILLATION ON PRADAXA 7. HYPERTENSION, IMPROVED CONTROL 8. ELEVATED BMI 41.9 9. COLONIC POLYP REMOVED PER COLONOSCOPY 10. HISTORY OF GI BLEEDS, MINIMAL, CAUSE NOT QUITE DETERMINED 11. HISTORY OF BENIGN PROSTATIC HYPERTROPHY 12. DYSLIPIDEMIA PROGNOSIS: Guarded. MTDD
== END 2016-08-07 16:25 | disposition home or self-care (01) | DRG 194 ==
LOC: MEDSURG B 20:20
PROVIDERS: ADMIT General Practice; ATTEND General Practice
DX: J18.9 Pneumonia, unspecified organism (principal); R04.2 Hemoptysis; Z68.41 Body mass index [BMI] 40.0-44.9, adult; R91.8 Other nonspecific abnormal finding of lung field; E11.9 Type 2 diabetes mellitus without complications; I48.91 Unspecified atrial fibrillation; I10 Essential (primary) hypertension; R63.8 Other symptoms and signs concerning food and fluid intake; E78.5 Hyperlipidemia, unspecified; N40.0 Benign prostatic hyperplasia without lower urinary tract symptoms; Z98.890 Other specified postprocedural states; Z87.19 Personal history of other diseases of the digestive system; Z79.01 Long term (current) use of anticoagulants; Z79.899 Other long term (current) drug therapy
CPT/HCPCS: 36415; 80053; 81001; 82150; 83690; 84145; 85025; 86140; 86631; 86632; 86644; 86645; 86663; 86664; 86710; 87040; 87070; 87449; 87804; 93005; 93010; 97802; 99222; 99232; 99239

== ENCOUNTER 2016-08-16 07:57 | Outpatient (CLI) ==
[2016-08-16 08:19] LABS: BASOPHILS % (AUTO) 0.5 % (0.0-3.0); EOSINOPHILS # (AUTO) 0.1 K/ul (0.0-0.7); HEMATOCRIT 40.5 % (42.0-52.0); HEMOGLOBIN 12.9 g/dl (14.0-18.0); IMMATURE GRANULOCYTE % (AUTO) 0.8 % (0.0-5.0); LYMPHOCYTES # (AUTO) 1.8 K/uL (0.60-3.4); LYMPHOCYTES % (AUTO) 20.3 (10.0-50.0); MEAN CORPUSCULAR HEMOGLOBIN 29.5 pg (27.0-31.0); MEAN CORPUSCULAR HGB CONC 31.9 (31.8-35.4); MEAN CORPUSCULAR VOLUME 92.7 fl (80.0-94.0); MONOCYTES # (AUTO) 0.6 K/uL (0.4-2.0); NEUTROPHILS # (AUTO) 6.1 K/ul (2.0-6.9); NEUTROPHILS % (AUTO) 70.4; PLATELET COUNT 304 10^3/uL (140-440); RED BLOOD COUNT 4.37 10^6/ul (4.70-6.10)
[2016-08-16 08:21] LABS: BILIRUBIN,URINE Negative (NEGATIVE); KETONES,URINE Negative (NEGATIVE); LEUKOCYTE ESTERASE ,URINE Negative (NEGATIVE); NITRITE,URINE Negative (NEGATIVE); PH,URINE 5.5 (5-9); PROTEIN,URINE Negative (NEGATIVE); URINE, BLOOD Trace-intact (NEGATIVE)
[2016-08-16 08:31] LABS: ADD URINE MICROSCOPIC YES
[2016-08-16 08:38] LABS: ALBUMIN 3.7 g/dL (3.4-5.0); ALBUMIN/GLOBULIN RATIO 0.95; ANION GAP 15.1; BILIRUBIN,TOTAL 0.42 mg/dL (0.00-1.20); BUN/CREATININE RATIO 14.58; CALCIUM 9.1 mg/dL (8.2-10.2); CHOL/HDL RATIO 4.6 (4.5-6.4); CREATININE 0.96 mg/dL (0.60-1.10); POTASSIUM 4.1 mmol/L (3.5-5.1); TOTAL PROTEIN 7.6 g/dL (5.8-8.1)
== END 2016-08-16 07:58 | disposition home or self-care (01) ==
LOC: LAB 07:57
PROVIDERS: ATTEND General Practice
DX: E11.9 Type 2 diabetes mellitus without complications (principal); I15.9 Secondary hypertension, unspecified; I48.91 Unspecified atrial fibrillation; E88.81 Metabolic syndrome and other insulin resistance; Z79.899 Other long term (current) drug therapy
CPT/HCPCS: 36415; 80053; 80061; 81001; 83036; 85025

== ENCOUNTER 2016-10-14 11:08 | Outpatient (CLI) ==
[2016-10-14 13:56] LABS: BASOPHILS % (AUTO) 0.4 % (0.0-3.0); EOSINOPHILS # (AUTO) 0.1 K/ul (0.0-0.7); EOSINOPHILS % (AUTO) 1.6 % (0.0-7.0); HEMATOCRIT 44.9 % (42.0-52.0); HEMOGLOBIN 14.3 g/dl (14.0-18.0); IMMATURE GRANULOCYTE % (AUTO) 0.8 % (0.0-5.0); LYMPHOCYTES # (AUTO) 1.7 K/uL (0.60-3.4); LYMPHOCYTES % (AUTO) 21.9 (10.0-50.0); MEAN CORPUSCULAR HEMOGLOBIN 28.5 pg (27.0-31.0); MEAN CORPUSCULAR HGB CONC 31.8 (31.8-35.4); MEAN CORPUSCULAR VOLUME 89.6 fl (80.0-94.0); MONOCYTES # (AUTO) 0.6 K/uL (0.4-2.0); MONOCYTES % (AUTO) 8.1 (0-10); NEUTROPHILS # (AUTO) 5.3 K/ul (2.0-6.9); NEUTROPHILS % (AUTO) 67.2; PLATELET COUNT 208 10^3/uL (140-440); RED BLOOD COUNT 5.01 10^6/ul (4.70-6.10); WHITE BLOOD COUNT 7.89 K/ul (4.2-10.2)
[2016-10-14 14:06] LABS: BILIRUBIN,URINE Negative (NEGATIVE); KETONES,URINE Trace (NEGATIVE); LEUKOCYTE ESTERASE ,URINE Negative (NEGATIVE); NITRITE,URINE Negative (NEGATIVE); PH,URINE 5.5 (5-9); PROTEIN,URINE Negative (NEGATIVE); URINE, BLOOD Negative (NEGATIVE)
[2016-10-14 14:07] LABS: ADD URINE MICROSCOPIC NO
[2016-10-14 15:09] LABS: ALBUMIN 3.7 g/dL (3.4-5.0); ANION GAP 15.3; BUN/CREATININE RATIO 17.07; CALCIUM 9.6 mg/dL (8.2-10.2); CREATININE 0.82 mg/dL (0.60-1.10); PHOSPHORUS 3.9 mg/dL (2.3-3.7); POTASSIUM 4.3 mmol/L (3.5-5.1)
== END 2016-10-14 11:09 | disposition home or self-care (01) ==
LOC: LAB 11:08
PROVIDERS: ATTEND General Practice
DX: E11.9 Type 2 diabetes mellitus without complications (principal); I48.91 Unspecified atrial fibrillation; I15.9 Secondary hypertension, unspecified; E88.81 Metabolic syndrome and other insulin resistance; R09.89 Other specified symptoms and signs involving the circulatory and respiratory systems
CPT/HCPCS: 36415; 80069; 81001; 83036; 85025

== ENCOUNTER 2016-12-08 15:29 | Outpatient (CLI) ==
[2016-12-08 16:18] LABS: BILIRUBIN,URINE Negative (NEGATIVE); KETONES,URINE Negative (NEGATIVE); LEUKOCYTE ESTERASE ,URINE 3+ (NEGATIVE); NITRITE,URINE Negative (NEGATIVE); PROTEIN,URINE Negative (NEGATIVE); URINE, BLOOD Trace-intact (NEGATIVE)
[2016-12-08 16:20] LABS: ADD URINE MICROSCOPIC YES
== END 2016-12-08 15:30 | disposition home or self-care (01) ==
LOC: LAB 15:29
PROVIDERS: ATTEND General Practice
DX: R30.0 Dysuria (principal)
CPT/HCPCS: 81001; 87086; 87186

== ENCOUNTER 2017-01-17 11:57 | Outpatient (CLI) ==
[2017-01-17 13:21] LABS: BASOPHILS % (AUTO) 0.4 % (0.0-3.0); EOSINOPHILS # (AUTO) 0.1 K/ul (0.0-0.7); EOSINOPHILS % (AUTO) 1.5 % (0.0-7.0); HEMATOCRIT 43.6 % (42.0-52.0); HEMOGLOBIN 14.2 g/dl (14.0-18.0); IMMATURE GRANULOCYTE % (AUTO) 0.7 % (0.0-5.0); LYMPHOCYTES # (AUTO) 1.5 K/uL (0.60-3.4); LYMPHOCYTES % (AUTO) 19.1 (10.0-50.0); MEAN CORPUSCULAR HEMOGLOBIN 29.3 pg (27.0-31.0); MEAN CORPUSCULAR HGB CONC 32.6 (31.8-35.4); MEAN CORPUSCULAR VOLUME 89.9 fl (80.0-94.0); MONOCYTES # (AUTO) 0.5 K/uL (0.4-2.0); MONOCYTES % (AUTO) 7.1 (0-10); NEUTROPHILS # (AUTO) 5.4 K/ul (2.0-6.9); NEUTROPHILS % (AUTO) 71.2; PLATELET COUNT 208 10^3/uL (140-440); RED BLOOD COUNT 4.85 10^6/ul (4.70-6.10); WHITE BLOOD COUNT 7.58 K/ul (4.2-10.2)
[2017-01-17 13:29] LABS: BILIRUBIN,URINE Negative (NEGATIVE); KETONES,URINE Negative (NEGATIVE); LEUKOCYTE ESTERASE ,URINE Negative (NEGATIVE); NITRITE,URINE Negative (NEGATIVE); PH,URINE 5.5 (5-9); PROTEIN,URINE Negative (NEGATIVE); URINE, BLOOD Negative (NEGATIVE)
[2017-01-17 13:31] LABS: ADD URINE MICROSCOPIC NO
[2017-01-17 13:39] LABS: ALBUMIN 3.7 g/dL (3.4-5.0); ALBUMIN/GLOBULIN RATIO 1.06; ANION GAP 15.3; BILIRUBIN,TOTAL 0.56 mg/dL (0.00-1.20); BUN/CREATININE RATIO 14.28; CHOL/HDL RATIO 4.5 (4.5-6.4); CREATININE 0.84 mg/dL (0.60-1.10); POTASSIUM 4.3 mmol/L (3.5-5.1); TOTAL PROTEIN 7.2 g/dL (5.8-8.1)
== END 2017-01-17 11:58 | disposition home or self-care (01) ==
LOC: LAB 11:57
PROVIDERS: ATTEND General Practice
DX: I48.91 Unspecified atrial fibrillation (principal); I15.9 Secondary hypertension, unspecified; E11.9 Type 2 diabetes mellitus without complications; N40.0 Benign prostatic hyperplasia without lower urinary tract symptoms; E88.81 Metabolic syndrome and other insulin resistance
CPT/HCPCS: 36415; 80053; 80061; 81001; 83036; 85025

== ENCOUNTER 2017-04-11 12:20 | Outpatient (CLI) ==
[2017-04-11 13:27] LABS: ALBUMIN 3.7 g/dL (3.4-5.0); ALBUMIN/GLOBULIN RATIO 1.03; BILIRUBIN,TOTAL 0.86 mg/dL (0.00-1.20); BUN/CREATININE RATIO 13.15; CALCIUM 9.7 mg/dL (8.2-10.2); CREATININE 0.76 mg/dL (0.60-1.10); TOTAL PROTEIN 7.3 g/dL (5.8-8.1)
== END 2017-04-11 12:21 | disposition home or self-care (01) ==
LOC: LAB 12:20
PROVIDERS: ATTEND Emergency Medicine
DX: E11.9 Type 2 diabetes mellitus without complications (principal); I15.9 Secondary hypertension, unspecified
CPT/HCPCS: 36415; 80053

== ENCOUNTER 2017-05-23 08:07 | Outpatient (CLI) ==
[2017-05-23 08:32] LABS: BASOPHILS % (AUTO) 0.6 % (0.0-3.0); EOSINOPHILS # (AUTO) 0.2 K/ul (0.0-0.7); EOSINOPHILS % (AUTO) 3.2 % (0.0-7.0); HEMATOCRIT 43.2 % (42.0-52.0); HEMOGLOBIN 14.5 g/dl (14.0-18.0); IMMATURE GRANULOCYTE % (AUTO) 0.3 % (0.0-5.0); LYMPHOCYTES # (AUTO) 1.6 K/uL (0.60-3.4); LYMPHOCYTES % (AUTO) 22.1 (10.0-50.0); MEAN CORPUSCULAR HEMOGLOBIN 30.6 pg (27.0-31.0); MEAN CORPUSCULAR HGB CONC 33.6 (31.8-35.4); MEAN CORPUSCULAR VOLUME 91.1 fl (80.0-94.0); MONOCYTES # (AUTO) 0.5 K/uL (0.4-2.0); MONOCYTES % (AUTO) 6.5 (0-10); NEUTROPHILS # (AUTO) 4.9 K/ul (2.0-6.9); NEUTROPHILS % (AUTO) 67.3; PLATELET COUNT 160 10^3/uL (140-440); RED BLOOD COUNT 4.74 10^6/ul (4.70-6.10); WHITE BLOOD COUNT 7.25 K/ul (4.2-10.2)
[2017-05-23 08:46] LABS: BILIRUBIN,URINE Negative (NEGATIVE); KETONES,URINE Negative (NEGATIVE); LEUKOCYTE ESTERASE ,URINE Negative (NEGATIVE); NITRITE,URINE Negative (NEGATIVE); PH,URINE 5.5 (5-9); PROTEIN,URINE Negative (NEGATIVE); URINE, BLOOD Negative (NEGATIVE)
[2017-05-23 08:49] LABS: ADD URINE MICROSCOPIC NO
[2017-05-23 08:51] LABS: ALBUMIN 3.7 g/dL (3.4-5.0); ALBUMIN/GLOBULIN RATIO 1.12; ANION GAP 12.1; BILIRUBIN,TOTAL 0.62 mg/dL (0.00-1.20); BUN/CREATININE RATIO 20.25; CALCIUM 9.5 mg/dL (8.2-10.2); CREATININE 0.79 mg/dL (0.60-1.10); POTASSIUM 4.1 mmol/L (3.5-5.1)
== END 2017-05-23 08:08 | disposition home or self-care (01) ==
LOC: LAB 08:07
PROVIDERS: ATTEND General Practice
DX: E11.9 Type 2 diabetes mellitus without complications (principal); I15.9 Secondary hypertension, unspecified; I48.91 Unspecified atrial fibrillation; Z79.899 Other long term (current) drug therapy
CPT/HCPCS: 36415; 80053; 81001; 83036; 85025

== ENCOUNTER 2017-05-27 15:02 | Emergency (ER) ==
[2017-05-27 15:18] VITALS: BP 213/154; TEMP 97.2; BMI 36.6
[2017-05-27] MEDS ORDERED: LASIX IVP STA (15:26)
[2017-05-27] MEDS ORDERED: CARDIZEM INJ IVP STA (15:26)
[2017-05-27] MEDS ORDERED: CARDIZEM INJ ONE (15:27)
[2017-05-27] MEDS ORDERED: AMIDATE IVP STA ×2 (15:28→17:30)
[2017-05-27] MEDS ORDERED: ANECTINE IVP STA (15:29)
--- NOTE | 2017-05-27 15:43 | DI ---
EXAM: Single frontal view of the chest HISTORY: Shortness of breath. COMPARISON: Chest x-ray 07/03/[address] chest 08/03/2016 FINDINGS: Cardiomediastinal silhouette is enlarged. There is no pneumothorax or pleural effusion. T here is pulmonary vascular indistinctness and bilateral lower lobe ground-glass consolidations. Osse ous structures are unremarkable. IMPRESSION: 1. Stable cardiomegaly. 2. Bilateral lower lobe ground-glass consolidations may represent atelectasis versus pneumonia.
[2017-05-27] MEDS ORDERED: NORCURON IVP STA ×2 (15:54→17:25)
[2017-05-27] MEDS ORDERED: NORCURON ONE (16:03)
[2017-05-27] MEDS ORDERED: SUBLIMAZE IVP STA ×2 (16:04→16:20)
--- NOTE | 2017-05-27 16:04 | ED.PDOC ---
General ED Provider: Dr. GUILLERMO GALLEGO Chief Complaint: Shortness of Air Stated Complaint: short of air Time Seen by Physician: 15:04 (arrived with shortness of breath and impending resp failure ) Mode of Arrival: Stretcher Information Source: Patient, EMT Exam Limitations: Clinical condition Primary Care Provider: [facility] Nursing and Triage Documentation Reviewed and Agree: Yes (pt has been noted to have progressive 3 days shortness of breath) Respiratory Complaint Exam - Shortness of Air Complaint/Exam Onset/Duration: 3 days Symptoms Are: Still present (but much worse today just prior arrival) Timing: Constant Initial Severity: Severe Current Severity: Severe Character: Reports: Dyspnea at rest, Dyspnea on exertion, Orthopnea Aggravating: Reports: Deep breaths, Recumbent position Alleviating: Reports: Oxygen (intubation started with NRB MASK HIS O2 SAT WAS IN AT BEST 80) Associated Signs and Symptoms: Reports: Cough, Diaphoresis Related History: Reports: Similar episode (PNEUMONIA X2 IN PAST 2 YEARS ), Obesity History of Healthcare-Acquired Pneumonia: No Pulmonary Embolism Risk Factors: Reports: Bedrest Cardiac Risk Factors: Reports: Elevated lipids, Diabetes, Hypertension, CHF Tuberculosis Risk Factors: Reports: Chronic Resp. Faliure Home Oxygen Use: No Recent Stress Test: No Recent Echo/LV Function: No Respiratory Distress: Severe Stridor Present: No Tracheal Deviation: No Subcutaneous Emphysema: No (WAS BECOMING CONFUSED AT THE CLINIC BUT CONFUSED ALL DAY WORSE AT CLINIC) Accessory Muscle Use: Yes Retractions: Diaphragmatic Diminished Breath Sounds: Yes (RALES THROUGH OUT ) Prolonged Expiratory Phase: Yes Unable to Speak Full Sentences: Yes Fatigue: Yes Leg Swelling: No Cali's Sign Present: No Grunting Respirations: No Kussmaul Respirations: No Differential Diagnoses: CHF, Pulmonary Edema, Pneumonia, Bronchitis Quality Indicators for AMI: EKG in 10min. Quality Indicators for Cardiac Chest Pain: EKG in 10min. Quality Indicator For Non-Traumatic Chest Pain/Syncope: EKG Performed Quality Indicators For Pneumonia/CAP: Empiric Antibiotic Rx Related Surgical History: Reports: None Review of Systems - Review Of Systems Constitutional: Reports: Malaise, Weakness Eyes: Reports: No symptoms Ears, Nose, Mouth, Throat: Reports: No symptoms Respiratory: Reports: Cough, Orthopnea, Short of air Cardiac: Reports: Irregular heart rate (TACHYCARDIC ), Lightheadedness, Palpitations. Denies: Chest pain GI: Reports: No symptoms : Reports: No symptoms Musculoskeletal: Reports: No symptoms Skin: Reports: No symptoms Neurological: Reports: No symptoms Endocrine: Reports: No symptoms Hematologic/Lymphatic: Reports: No symptoms All Other Systems: Reviewed and Negative Past Medical History - Past Medical History Previously Healthy: No Endocrine: Reports: DM 2 Cardiovascular: Reports: Hypertension, A-Fib Respiratory: Reports: None Hematological: Reports: None Gastrointestinal: Reports: GI Bleed, Other (polyps , Hemorroids) Genitourinary: Reports: None Neuro/Psych: Reports: Other Musculoskeletal: Reports: None Cancer: Reports: None Other Pertinent Past Medical History: TORN DETACHED RETINA LEFT EYE - Surgical History General Surgical History: Reports: Other (RETINA LEFT EYE) - Family History Family History: Reports: Unknown - Social History Smoking Status: Former smoker Hx Substance Use: No Alcohol Screening: None Physical Exam - Physical Exam Appearance: Ill-appearing Ill-appearing: Severe Pain Distress: Severe Eyes: ANA LUISA, EOMI, Conjunctiva clear ENT: Ears normal, Nose normal, Oropharynx normal Respiratory: Rhonchi (WIDESPREAD ) Cardiovascular: Irregular rhythm, Tachycardia GI/: Soft, Nontender, No masses, Bowel sounds normal, No Organomegaly Musculoskeletal: Normal strength, ROM intact, No edema, No calf tenderness Skin: Warm, Dry, Normal color Neurological: Sensation intact, Motor intact, Reflexes intact, Cranial nerves intact, Alert, Oriented Psychiatric: Affect appropriate, Mood appropriate Interpretation - Radiology Interpretation Exam Interpreted: CXR (CHF ET TUBE IN PLACE) - EKG Interpretation Rhythm: Other (AFIB WITH RVR) Procedures - Intubation Indication: Present: Respiratory Insufficiency, Altered Mental Status, Airway Protection, Other (2 ATTEMPT BY THE ED MD PLACED ON LMA SIZE 4 02 SAT BETWEEN 50 TO 70 ) Medications: Yes: Norcuron, Succinylcholine, Other (TOMIDATE ) Tube Size: 7 Position of Tube at Lip: 23 Number of Attempts: 2 (DUE TO SCRETION FROTHY BLOOD SECRETION ATTEMPTED LMA AND THEN ANESTHESIA INTUBATED FIRST ATTEMPT) Suction Used: Yes Glidescope Used: No CO2 Detector Used: Yes (PLACEMENT OF THE LMA CONFIRMED WELL ET TUBE LATER ON BY ANESTHESIA ) Lung Sounds Equal Bilaterally: Yes (BUT LUNGS SOUNDED WET ) Intubation Complications: Present: Oral-unsuccessful attempt (X2 INBETWEEN o2 applied by BMV AND LATER BY LMA ). Absent: Vomited, Apparent aspiration Tube Inserted By: ANESTHESIA Tube Placement Verified by X-ray: Yes ( CHEST XRAY ) Re-Evaluation - Re-Evaluation Time of Re-Evaluation: 16:00 Status: Improved Vital Signs Stable: Yes Pain Level: S/P INTUBATION Appearance: Other (SEE ABOVE) Lungs: Other (RALES FROTHY SECRETION) Neuro: Other (INTUBATED SEDATED PARALYZED) Physician Notification - Case Discussed Physician Notified: Drew Solano Time of Notification: 17:18 (ACCEPTED FOR TRANSFER , GEETA HIS SPOUSE FULLY INFORMED PMD ALSO IN ED ) Physician Notified: PMD Time of Notification: 17:20 Admit To: Inpatient Critical Care Note - Critical Care Note Total Time (mins): 2 Course - Course Hematology/Chemistry: 05/27/17 16:15 05/27/17 16:15 Orders, Labs, Meds: Lab Review 05/27/17 05/27/17 05/27/17 16:14 16:15 16:15 WBC 22.12 H D RBC 5.18 Hgb 15.9 Hct 47.9 MCV 92.5 MCH 30.7 MCHC 33.2 RDW Coeff of Sam 14.9 H Plt Count 208 Immature Gran % (Auto) 0.6 Neut % (Auto) 84.2 Lymph % (Auto) 12.4 [place] % (Auto) 1.9 Eos % (Auto) 0.6 Baso % (Auto) 0.3 Immature Gran # (Auto) 0.1 Neut # 18.6 H Lymph # 2.8 [place] # 0.4 Eos # 0.1 Baso # 0.1 PT INR APTT Puncture Site O2 Saturation ABG pH ABG pCO2 ABG pO2 ABG HCO3 ABG Total CO2 ABG Base Excess Cyrus Test O2 Delivery Device Oxygen Liter Flow FiO2 % Sodium 136 Potassium 4.5 Chloride 103 Carbon Dioxide 17 L Anion Gap 20.5 BUN 16 Creatinine 1.07 Estimated GFR (MDRD) 66.00 BUN/Creatinine Ratio 14.95 Glucose 308 H Lactic Acid Calcium 8.8 Total Bilirubin 0.85 AST 23 ALT 22 Alkaline Phosphatase 56 Total Creatine Kinase 67 Troponin I 0.0360 Total Protein 7.4 Albumin 3.8 Globulin 3.6 Albumin/Globulin Ratio 1.06 Urine Color Yellow Urine Clarity Clear Urine pH 5.0 Ur Specific [place] 1.025 Urine Protein 2+ Urine Glucose (UA) Trace Urine Ketones Negative Urine Blood 1+ Urine Nitrite Negative Urine Bilirubin Negative Urine Urobilinogen 0.2 Ur Leukocyte Esterase Negative Urine Microscopic RBC 2-5 Urine Microscopic WBC 0-2 Ur Squamous Epith Cells 0-2 Amorphous Sediment 2+ 05/27/17 05/27/17 05/27/17 16:15 16:15 16:25 WBC RBC Hgb Hct MCV MCH MCHC RDW Coeff of Sam Plt Count Immature Gran % (Auto) Neut % (Auto) Lymph % (Auto) [place] % (Auto) Eos % (Auto) Baso % (Auto) Immature Gran # (Auto) Neut # Lymph # [place] # Eos # Baso # PT 12.3 H INR 1.22 APTT 30.7 Puncture Site Lrad O2 Saturation 77.0 L ABG pH 7.076 L* ABG pCO2 75.6 H ABG pO2 59.0 L* ABG HCO3 22.2 ABG Total CO2 25 ABG Base Excess -8 L Cyrus Test + O2 Delivery Device Nrbx Oxygen Liter Flow 15.00 FiO2 % 100.0 Sodium Potassium Chloride Carbon Dioxide Anion Gap BUN Creatinine Estimated GFR (MDRD) BUN/Creatinine Ratio Glucose Lactic Acid 33.5 H Calcium Total Bilirubin AST ALT Alkaline Phosphatase Total Creatine Kinase Troponin I Total Protein Albumin Globulin Albumin/Globulin Ratio Urine Color Urine Clarity Urine pH Ur Specific [place] Urine Protein Urine Glucose (UA) Urine Ketones Urine Blood Urine Nitrite Urine Bilirubin Urine Urobilinogen Ur Leukocyte Esterase Urine Microscopic RBC Urine Microscopic WBC Ur Squamous Epith Cells Amorphous Sediment Orders Category Date Time Status EKG-(ED ONLY) Stat CARDIO 05/27/17 15:25 Ordered VENTILATOR Routine CARDIO 05/27/17 16:19 Ordered ED IV/MEDIPORT/POWERPORT .ONCE EMERGENCY 05/27/17 15:25 Active Mancini [ED CATHETER INSERTION AND CARE] .ONCE EMERGENCY 05/27/17 16:17 Active ABG Stat LAB 05/27/17 16:25 Completed B-TYPE NATRIURETIC PEPTIDE Stat LAB 05/27/17 16:15 Received BLOOD CULTURE Stat LAB 05/27/17 16:15 Ordered CBC W/ AUTO DIFF Stat LAB 05/27/17 16:15 Completed COMPREHENSIVE METABOLIC PANEL Stat LAB 05/27/17 16:15 Completed CREATINE KINASE Stat LAB 05/27/17 16:15 Completed D-DIMER Urgent LAB 05/27/17 16:15 Received LACTIC ACID Stat LAB 05/27/17 16:15 Completed PARTIAL THROMBOPLASTIN TIME Stat LAB 05/27/17 16:15 Completed PROCALCITONIN Stat LAB 05/27/17 16:15 Received PT WITH INR Stat LAB 05/27/17 16:15 Completed TROPONIN I Stat LAB 05/27/17 16:15 Completed URINALYSIS C & S IF INDICATED Stat LAB 05/27/17 16:14 Completed 0.9 % Sodium Chloride [Saline Flush] MEDS 05/27/17 15:24 Active 1 syr IVF PRN PRN 0.9 % Sodium Chloride [Sodium Chloride] 100 ml MEDS 05/27/17 17:30 Ordered Diltiazem HCl Inj [Cardizem Inj] 125 mg IV 10 mg/hr Ceftriaxone Sodium [Rocephin] MEDS 05/27/17 16:18 Discontinued 2 gm .ROUTE .STK-MED ONE Ceftriaxone Sodium [Rocephin] 2 gm MEDS 05/27/17 16:09 Discontinued 0.9 % Sodium Chloride [Sodium Chloride] 100 ml IV ONCE Diltiazem HCl Inj [Cardizem Inj] MEDS 05/27/17 15:26 Discontinued 20 mg IVP ONCE STA Diltiazem HCl Inj [Cardizem Inj] MEDS 05/27/17 15:27 Discontinued 50 mg .ROUTE .STK-MED ONE Etomidate [Amidate] MEDS 05/27/17 15:28 Discontinued 20 mg IVP ONCE STA Fentanyl Amp [Sublimaze] MEDS 05/27/17 16:22 Discontinued 100 mcg .ROUTE .STK-MED ONE Fentanyl Amp [Sublimaze] MEDS 05/27/17 16:20 Discontinued 20 mcg IVP ONCE STA Furosemide [Lasix] MEDS 05/27/17 15:26 Discontinued 40 mg IVP ONCE STA Succinylcholine Chloride [Anectine] MEDS 05/27/17 15:29 Discontinued 180 mg IVP ONCE STA Vecuronium Holiday [Norcuron] MEDS 05/27/17 16:03 Discontinued 10 mg .ROUTE .STK-MED ONE Vecuronium Holiday [Norcuron] MEDS 05/27/17 15:54 Discontinued 10 mg IVP ONCE STA CHEST, 1V AP ONLY Stat RADS 05/27/17 15:24 Completed CXR [CHEST, 1V AP ONLY] Stat RADS 05/27/17 16:08 Completed Medications Generic Name Dose Route Start Last Admin Trade Name Brielle PRN Reason Stop Dose Admin Diltiazem HCl 125 mg/ Sodium 125 mls @ 10 mls/hr 05/27/17 17:30 Chloride IV .[id number] ABHISHEK Protocol 10 MG/HR Sodium Chloride 1 syr 05/27/17 15:24 05/27/17 16:15 Saline Flush IVF 2 syr PRN PRN Administration To flush IV Discontinued Medications Generic Name Dose Route Start Last Admin Trade Name Fremarylou PRN Reason Stop Dose Admin Diltiazem HCl 20 mg 05/27/17 15:26 05/27/17 15:29 Cardizem Inj IVP 05/27/17 15:27 20 mg ONCE STA Administration Etomidate 20 mg 05/27/17 15:28 05/27/17 15:37 Amidate IVP 05/27/17 15:29 10 mg ONCE STA Administration Fentanyl Citrate 20 mcg 05/27/17 16:20 05/27/17 16:31 Sublimaze IVP 05/27/17 16:21 20 mcg ONCE STA Administration Furosemide 40 mg 05/27/17 15:26 05/27/17 15:31 Lasix IVP 05/27/17 15:27 40 mg ONCE STA Administration Ceftriaxone Sodium 2 gm/ 100 mls @ 100 mls/hr 05/27/17 16:09 05/27/17 16:21 Sodium Chloride IV 05/27/17 17:08 100 mls/hr ONCE STA Administration Succinylcholine Chloride 180 mg 05/27/17 15:29 05/27/17 15:38 Anectine IVP 05/27/17 15:30 180 mg ONCE STA Administration Vecuronium Holiday 10 mg 05/27/17 15:54 05/27/17 16:11 Norcuron IVP 05/27/17 15:55 8 mg ONCE STA Administration Vital Signs: Temp Pulse Resp BP Pulse Ox 05/27/17 16:22 20 05/27/17 15:04 97.2 F L 115 H 30 H 213/154 H 80 L Departure - Departure Time of Disposition: 17:18 Disposition: TSF SHORT-TRM HOSP Discharge Problem: A-fib Respiratory failure Qualifiers: Chronicity: chronic Respiratory failure complication: unspecified whether with hypoxia or hypercapnia Qualified Code(s): J96.10 - Chronic respiratory failure, unspecified whether with hypoxia or hypercapnia Instructions: A-fib (Atrial Fibrillation) (ED) Condition: Good Pt referred to PMD for follow-up: Yes Additional Instructions: Please call your Family Physician as soon as possible to schedule a follow-up appointment. Allergies/Adverse Reactions: Allergies codeine Adverse Reaction (Verified 05/27/17 15:24) gatifloxacin [From Tequin] Adverse Reaction (Verified 05/27/17 15:24) phenylbutazone [From Butazolidin] Adverse Reaction (Verified 05/27/17 15:24) Home Medications: Ambulatory Orders Aspirin [Aspirin EC] 81 mg PO BEDTIME 01/31/13 Diltiazem HCl [Cardizem] 60 mg PO BID 01/31/13 Multivitamin [Multi-Vitamin Daily] 1 tab PO DAILY 01/31/13 Vitamin B Complex 1 tab PO DAILY 01/31/13 Folic Acid 5 tab PO DAILY 06/04/13 Finasteride [Proscar] 5 mg PO DAILY 08/03/16 Dabigatran Etexilate Mesylate [Pradaxa] 75 mg PO QPM #30 capsule 08/07/16 Dabigatran Etexilate Mesylate [Pradaxa] 150 mg PO QAM #30 capsule 08/07/16 Mirabegron [Myrbetriq] 25 mg PO DAILY 12/08/16
[2017-05-27] MEDS ORDERED: ROCEPHIN 2 GM in SODIUM CHLORIDE 100 ML IV STA (16:09)
[2017-05-27] MEDS ORDERED: ROCEPHIN ONE (16:18)
[2017-05-27] MEDS ORDERED: SUBLIMAZE ONE (16:22)
[2017-05-27 16:24] LABS: BASOPHILS # (AUTO) 0.1 K/uL (0-0.2); BASOPHILS % (AUTO) 0.3 % (0.0-3.0); EOSINOPHILS # (AUTO) 0.1 K/ul (0.0-0.7); EOSINOPHILS % (AUTO) 0.6 % (0.0-7.0); HEMATOCRIT 47.9 % (42.0-52.0); HEMOGLOBIN 15.9 g/dl (14.0-18.0); IMMATURE GRANULOCYTE % (AUTO) 0.6 % (0.0-5.0); LYMPHOCYTES # (AUTO) 2.8 K/uL (0.60-3.4); LYMPHOCYTES % (AUTO) 12.4 (10.0-50.0); MEAN CORPUSCULAR HEMOGLOBIN 30.7 pg (27.0-31.0); MEAN CORPUSCULAR HGB CONC 33.2 (31.8-35.4); MEAN CORPUSCULAR VOLUME 92.5 fl (80.0-94.0); MONOCYTES # (AUTO) 0.4 K/uL (0.4-2.0); MONOCYTES % (AUTO) 1.9 (0-10); NEUTROPHILS # (AUTO) 18.6 K/ul (2.0-6.9); NEUTROPHILS % (AUTO) 84.2; PLATELET COUNT 208 10^3/uL (140-440); RED BLOOD COUNT 5.18 10^6/ul (4.70-6.10); WHITE BLOOD COUNT 22.12 K/ul (4.2-10.2)
--- NOTE | 2017-05-27 16:26 | DI ---
EXAM: Single frontal view of the chest HISTORY: ET tube place a. COMPARISON: Chest x-ray 05/27/2017 same day FINDINGS: There is an ET tube with the tip 6.5 cm above the ana. Cardiomediastinal silhouette is unchanged. There is no pneumothorax. Bilateral hazy ground-glass opacities have mildly improved. T he osseous structures are unremarkable. IMPRESSION: 1. ET tube with tip 6.5 cm above the ana with minimal improvement in patchy bilateral ground-glas s opacities.
[2017-05-27 16:43] LABS: ALBUMIN 3.8 g/dL (3.4-5.0); ALBUMIN/GLOBULIN RATIO 1.06; ANION GAP 20.5; BILIRUBIN,TOTAL 0.85 mg/dL (0.00-1.20); BUN/CREATININE RATIO 14.95; CALCIUM 8.8 mg/dL (8.2-10.2); CREATININE 1.07 mg/dL (0.60-1.10); POTASSIUM 4.5 mmol/L (3.5-5.1); TOTAL PROTEIN 7.4 g/dL (5.8-8.1); TROPONIN I 0.036 ng/ml (0.0000-0.4000)
[2017-05-27 16:59] LABS: BILIRUBIN,URINE Negative (NEGATIVE); KETONES,URINE Negative (NEGATIVE); LEUKOCYTE ESTERASE ,URINE Negative (NEGATIVE); NITRITE,URINE Negative (NEGATIVE); PROTEIN,URINE 2+ (NEGATIVE); URINE, BLOOD 1+ (NEGATIVE)
[2017-05-27 17:05] LABS: PARTIAL THROMBOPLASTIN TIME 30.7 SEC (23.9-40.0); PROTHROMBIN TIME 12.3 SEC (9.3-11.0)
[2017-05-27 17:07] LABS: ADD URINE MICROSCOPIC YES
[2017-05-27 17:13] LABS: ABG PH 7.076 (7.35-7.45)
[2017-05-27 17:14] LABS: ABG BASE EXCESS -8 (-2.0-2.0); ABG HCO3 22.2 (22.0-26.0); ABG PCO2 75.6 mmHg (35-45); ABG TCO2 25 (22.0-28.0)
[2017-05-27 17:19] LABS: ABG BASE EXCESS -8 (-2.0-2.0); ABG HCO3 20.2 (22.0-26.0); ABG PH 7.207 (7.35-7.45); ABG TCO2 22 (22.0-28.0)
[2017-05-27] MEDS ORDERED: CARDIZEM INJ 125 MG in SODIUM CHLORIDE 100 ML IV SCH (17:30)
--- NOTE | 2017-05-27 20:40 | ED.PDOC ---
Procedures - Intubation Indication: Present: Respiratory Insufficiency Type of Tube Used: Endotracheal Cricoid Pressure Used: Yes Tube Garcia Used: Yes Number of Attempts: 1 Suction Used: Yes Glidescope Used: No CO2 Detector Used: Yes Lung Sounds Equal Bilaterally: Yes Intubation Complications: Present: No complications Tube Inserted By: Jesús Boudreaux CRNA Tube Placement Verified by X-ray: Yes Conscious Sedation - Pre-op Assessment Weight: 270 lb 1.06 oz Surgical History: TORN DETACHED RETINA LEFT EYE - Medical History Past Medical History: Hypertension, Diabetes, A-FIb, Kidney Stones, Anxiety Other History: HEMORRHOIDS - Physical Exam Heart Rate/Rhythm: Tachycardia
== END 2017-05-27 18:15 | disposition short-term general hospital (02) ==
LOC: ED 15:02
DX: I48.91 Unspecified atrial fibrillation (principal); J96.10 Chronic respiratory failure, unspecified whether with hypoxia or hypercapnia; I10 Essential (primary) hypertension; R41.0 Disorientation, unspecified; E78.5 Hyperlipidemia, unspecified; E11.9 Type 2 diabetes mellitus without complications; I50.9 Heart failure, unspecified; Z79.899 Other long term (current) drug therapy; R06.02 Shortness of breath; R00.0 Tachycardia, unspecified
CPT/HCPCS: 36415; 80053; 81001; 82550; 82803; 83605; 83880; 84145; 84484; 85025; 85379; 85610; 85730; 87040; 93005; 93010; 96365; 96367; 96375; 96376; 99285; 99292

== ENCOUNTER 2017-07-26 14:27 | Outpatient (CLI) | END 2017-07-26 14:28 | disposition home or self-care (01) | LOC: LAB 14:27 | PROVIDERS: ATTEND General Practice | DX: E11.9 Type 2 diabetes mellitus without complications (principal); I48.91 Unspecified atrial fibrillation; I15.9 Secondary hypertension, unspecified; E88.81 Metabolic syndrome and other insulin resistance; R09.89 Other specified symptoms and signs involving the circulatory and respiratory systems; N40.0 Benign prostatic hyperplasia without lower urinary tract symptoms; R06.02 Shortness of breath; G47.33 Obstructive sleep apnea (adult) (pediatric); Z79.899 Other long term (current) drug therapy | CPT/HCPCS: 36415; 80053; 80061; 81001; 83036; 83880; 85025 ==

== ENCOUNTER 2017-08-25 14:22 | Outpatient (CLI) | END 2017-08-25 14:23 | disposition home or self-care (01) | LOC: FCC-LAB 14:22 | PROVIDERS: ATTEND General Practice | DX: E11.9 Type 2 diabetes mellitus without complications (principal) | CPT/HCPCS: 36415; 80069; 83036 ==

== ENCOUNTER 2017-09-26 13:17 | Outpatient (CLI) | END 2017-09-26 13:18 | disposition home or self-care (01) | LOC: FCC-LAB 13:17 | PROVIDERS: ATTEND General Practice | DX: E11.9 Type 2 diabetes mellitus without complications (principal); E88.81 Metabolic syndrome and other insulin resistance; I15.9 Secondary hypertension, unspecified | CPT/HCPCS: 36415; 80069; 83036; 83525; 84681 ==

== ENCOUNTER 2017-11-21 11:51 | Outpatient (CLI) | END 2017-11-21 11:52 | disposition home or self-care (01) | LOC: FCC-LAB 11:51 | PROVIDERS: ATTEND General Practice | DX: R79.89 Other specified abnormal findings of blood chemistry (principal); R06.02 Shortness of breath | CPT/HCPCS: 36415; 80069; 83880 ==

== ENCOUNTER 2017-11-28 13:54 | Outpatient (CLI) | END 2017-11-28 13:55 | disposition home or self-care (01) | LOC: FCC-LAB 13:54 | PROVIDERS: ATTEND General Practice | DX: E11.9 Type 2 diabetes mellitus without complications (principal) | CPT/HCPCS: 36415; 83037 ==

== ENCOUNTER 2018-01-23 09:15 | Outpatient (CLI) | END 2018-01-23 09:16 | disposition home or self-care (01) | LOC: FCC-LAB 09:15 | PROVIDERS: ATTEND General Practice | DX: R06.02 Shortness of breath (principal); E11.9 Type 2 diabetes mellitus without complications; I15.9 Secondary hypertension, unspecified; Z79.899 Other long term (current) drug therapy | CPT/HCPCS: 36415; 80053; 81001; 83036; 85025 ==

== ENCOUNTER 2018-10-02 07:53 | Outpatient (CLI) | END 2018-10-02 07:54 | disposition home or self-care (01) | LOC: RHC-LAB 07:53 | PROVIDERS: ATTEND General Practice | DX: E11.9 Type 2 diabetes mellitus without complications (principal); I48.91 Unspecified atrial fibrillation; I15.9 Secondary hypertension, unspecified; E88.81 Metabolic syndrome and other insulin resistance; R09.89 Other specified symptoms and signs involving the circulatory and respiratory systems; Z68.41 Body mass index [BMI] 40.0-44.9, adult; I73.9 Peripheral vascular disease, unspecified; G62.9 Polyneuropathy, unspecified; Z79.899 Other long term (current) drug therapy | CPT/HCPCS: 36415; 80053; 80061; 81001; 85025 ==

== ENCOUNTER 2019-02-01 16:57 | Emergency (ER) ==
[2019-02-01 17:00] VITALS: BP 168/92; TEMP 98.1; BMI 37.4
--- NOTE | 2019-02-01 18:02 | ED.PDOC ---
General ED Provider: Dr. LARISSA GODINEZ Chief Complaint: GI Bleed Stated Complaint: Loose stools that had a dark/black apearance. No pain Time Seen by Physician: 17:15 Mode of Arrival: Walk-In Information Source: Patient Exam Limitations: No limitations Primary Care Provider: [facility] Nursing and Triage Documentation Reviewed and Agree: Yes Does patient meet sepsis criteria?: No System Inflammatory Response Syndrome: Not Applicable Sepsis Protocol: For patient's 13 years and over: Temp is 96.8 and below OR 101 and greater Pulse >90 BPM Resp >20/minute Acutely Altered Mental Status Are patient's symptoms suggestive of a new infection, such as: -Pneumonia -Skin, Soft Tissue -Endocarditis -UTI -Bone, Joint Infection -Implantable Device -Acute Abdominal Infection -Wound Infection -Meningitis -Blood Stream Catheter Infection -Unknown GI Complaint Exam - GI Bleed Complaint/Exam Patient Complains of: Reports: Rectal bleeding, Black stools Onset/Duration: earlier today Symptoms Are: Still present Episodes Lasting: Minutes Severity: Reports: Blood-streaked stool, Black tarry stool Location of Pain: Reports: None Aggravating: Reports: None Alleviating: Reports: None Associated Signs and Symptoms: Denies: Back Pain, Pallor, Dizziness, Weakness, Syncope, Constipation, Nausea, Rectal pain, Bruising, Weight loss, Recent abnormal coags GI Bleed Risk Factors: Reports: Pradaxa use Recent Colonoscopy: No Recent EGD: No Abdominal Findings: Present: None Rectal Exam: Present: Normal Findings, Other (black liq stool) Differential Diagnoses: Blood Dyscrasia (pradaxa use), Diverticulitis, Ischemic Bowel, Other (divertiulosis) - Rectal Complaint/Exam Patient Complains of: Reports: Rectal bleeding Symptoms Are: Resolved Timing: Intermittent Episodes Lasting: Minutes Initial Severity: Moderate Current Severity: None Location: Reports: Rectal, No pain Character: Denies: Sharp, Dull, Burning, Itching, Pressure Aggravating: Reports: None Alleviating: Reports: None Associated Signs and Symptoms: Reports: Rectal bleeding, Blood-streaked stool, Black tarry stool, Bright red blood w/ stool. Denies: Blood without stool Related History: Denies: Similar episode Rectal Exam: Present: Normal findings Differential Diagnoses: Hemorrhoids, Other (diverticulosis) Review of Systems - Review Of Systems Constitutional: Reports: No symptoms Eyes: Reports: No symptoms Ears, Nose, Mouth, Throat: Reports: No symptoms Respiratory: Reports: No symptoms Cardiac: Reports: No symptoms GI: Reports: No symptoms : Reports: No symptoms Musculoskeletal: Reports: No symptoms All Other Systems: Reviewed and Negative Past Medical History - Past Medical History Previously Healthy: No Endocrine: Reports: DM 2 Cardiovascular: Reports: Hypertension, A-Fib Respiratory: Reports: None Hematological: Reports: None Gastrointestinal: Reports: GI Bleed, Other (polyps , Hemorroids/ Redundant colon ?Volvulus) Genitourinary: Reports: None Neuro/Psych: Reports: Other Musculoskeletal: Reports: None Cancer: Reports: None Other Pertinent Past Medical History: TORN DETACHED RETINA LEFT EYE - Surgical History General Surgical History: Reports: Other (RETINA LEFT EYE) - Family History Family History: Reports: Unknown - Social History Smoking Status: Former smoker Hx Substance Use: No Alcohol Screening: None - Immunizations Tetanus Shot up to Date: No Physical Exam - Physical Exam Appearance: Well-appearing, No pain distress, Well-nourished, Obese Ill-appearing: None Pain Distress: None Eyes: ANA LUISA, EOMI, Conjunctiva clear ENT: Ears normal, Nose normal, Oropharynx normal Respiratory: Airway patent, Breath sounds clear, Breath sounds equal, Respirations nonlabored Cardiovascular: RRR, Pulses normal, No rub, No murmur GI/: Soft, Nontender, No masses, Bowel sounds normal, No Organomegaly, Bowel sounds hyperactive (Rectal exam completed) Musculoskeletal: Normal strength, ROM intact, No edema, No calf tenderness Skin: Warm, Dry, Normal color Neurological: Sensation intact, Motor intact, Reflexes intact, Cranial nerves intact, Alert, Oriented Psychiatric: Affect appropriate, Mood appropriate Interpretation - Radiology Interpretation Radiology Interpretation By: Radiologist Exam Interpreted: CT Scan (Sigmoid volvulus) Critical Care Note - Critical Care Note Total Time (mins): 60 Course - Course Hematology/Chemistry: 02/01/19 18:29 02/01/19 18:29 Orders, Labs, Meds: Lab Review 02/01/19 02/01/19 02/01/19 18:29 18:29 20:04 WBC 8.93 RBC 4.28 L Hgb 12.9 L Hct 39.8 L MCV 93.0 MCH 30.1 MCHC 32.4 RDW Coeff of Sam 14.4 Plt Count 171 Immature Gran % (Auto) 0.8 Neut % (Auto) 76.3 Lymph % (Auto) 15.1 Nash % (Auto) 6.9 Eos % (Auto) 0.7 Baso % (Auto) 0.2 Immature Gran # (Auto) 0.1 Neut # (Auto) 6.8 Lymph # (Auto) 1.4 Nash # (Auto) 0.6 Eos # (Auto) 0.1 Baso # (Auto) 0.0 Sodium 136.5 Potassium 4.14 Chloride 104.0 Carbon Dioxide 24.4 Anion Gap 12.24 BUN 24.5 H Creatinine 0.82 Estimated GFR (MDRD) 90.00 BUN/Creatinine Ratio 29.87 Glucose 118.3 H Calcium 9.16 Total Bilirubin 0.52 AST 25.9 ALT 21.9 Alkaline Phosphatase 41.2 L Total Protein 7.41 Albumin 4.51 Globulin 2.90 Albumin/Globulin Ratio 1.55 Amylase 75.3 Stl Occult Blood (IFOB) Positive Stool Occult Blood #2 Pending Stool Occult Blood #3 Pending Orders Category Date Time Status EKG-(ED ONLY) Stat CARDIO 02/01/19 20:04 Ordered NPO REMINDER: IMAGING ONCE CARE 02/01/19 19:59 Active IV [ED IV/MEDIPORT/POWERPORT] .ONCE EMERGENCY 02/01/19 20:04 Active AMYLASE Stat LAB 02/01/19 18:29 Completed CBC W/ AUTO DIFF Stat LAB 02/01/19 18:29 Completed CMP [COMPREHENSIVE METABOLIC PANEL] Stat LAB 02/01/19 18:29 Completed OCCULT BLOOD, STOOL Stat LAB 02/01/19 20:04 Results 0.9 % Sodium Chloride [Saline Flush] MEDS 02/01/19 20:03 Active 1 syr IVF PRN PRN Sodium Chloride 0.9% [Sodium Chloride] 1,000 ml MEDS 02/01/19 19:59 Active IV 125 mls/hr CT ABDOMEN/PELVIS WO CONTRAST Stat RADS 02/01/19 18:18 Completed Medications Generic Name Dose Route Start Last Admin Trade Name Freq PRN Reason Stop Dose Admin Sodium Chloride 1,000 mls @ 125 mls/hr 02/01/19 19:59 02/01/19 20:14 Sodium Chloride IV 02/02/19 03:58 125 mls/hr .Q8H STA Administration Sodium Chloride 1 syr 02/01/19 20:03 02/01/19 20:14 Saline Flush IVF 1 syr PRN PRN Administration To flush IV Vital Signs: Temp Pulse Resp BP Pulse Ox 02/01/19 16:58 98.1 F 85 18 168/92 H 96 Departure - Departure Time of Disposition: 20:30 Disposition: TSF SHORT-TRM HOSP Discharge Problem: Sigmoid volvulus Condition: Stable Pt referred to PMD for follow-up: No IPMP verified?: No Additional Instructions: Discussed case with patient and his Explained findings and need to see GI specialist Indicated he had prev had colonoscopy by Dr Tanika GLASGOW in [place] at [facility]. Allergies/Adverse Reactions: Allergies codeine Adverse Reaction (Unverified 02/01/19 17:00) gatifloxacin [From Tequin] Adverse Reaction (Unverified 02/01/19 17:00) phenylbutazone [From Butazolidin] Adverse Reaction (Unverified 02/01/19 17:00) Home Medications: Ambulatory Orders Aspirin [Aspirin EC] 81 mg PO BEDTIME 01/31/13 Multivitamin [Multi-Vitamin Daily] 1 tab PO DAILY 01/31/13 Vitamin B Complex 1 tab PO DAILY 01/31/13 Dabigatran Etexilate Mesylate [Pradaxa] 75 mg PO QPM #30 capsule 08/07/16 Dabigatran Etexilate Mesylate [Pradaxa] 150 mg PO QAM #30 capsule 08/07/16 Mirabegron [Myrbetriq] 25 mg PO DAILY 12/08/16 Folic Acid 1 mg PO DAILY #0 tab-cap 01/30/18 Disposition Discussed With: Patient, Family Additional Information: Discussed with Dr Digna Payan Gen Surgeon. Reviewed case. Agreed to accept pt in transfer for additioal evaluation
--- NOTE | 2019-02-01 19:20 | CT ---
EXAM: CT of the abdomen pelvis without contrast History: Blood in stool. Comparison: CT abdomen 01/27/2009 Technique: Multiplanar CT images through the abdomen pelvis were obtained without the administration of IV contrast Findings: Heart is enlarged. Coronary calcifications. Subsegmental atelectasis seen within the low er lungs. No acute osseous abnormalities. A sigmoid volvulus. The colon proximal to the volvulus is distended. Atherosclerotic vascular calci fications. No gallstones identified by CT. A few small hepatic cysts. Spleen is unremarkable. No peripancreatic inflammation. There is calcification seen within the uncinate process of the pancreas which is probably related to chronic pancreatitis. Adrenal glands are unremarkable. A simple bilat eral renal cysts. 2 mm calculus within the left kidney. No hydronephrosis. Prominent prostate abut ting the base of the bladder. No bladder wall thickening. No free air and no ascites. Impression: 1. Sigmoid volvulus causing large bowel obstruction. 2. Colonic diverticulosis. 3. Nonobstructing left nephrolithiasis. Critical results communicated to Dr. Hess at 7:13 p.m. 02/01/2019
[2019-02-01] MEDS ORDERED: SODIUM CHLORIDE 1,000 ML IV STA (19:59)
== END 2019-02-01 21:21 | disposition short-term general hospital (02) ==
LOC: ED 16:57
DX: K56.2 Volvulus (principal); E11.9 Type 2 diabetes mellitus without complications; I10 Essential (primary) hypertension; Z87.19 Personal history of other diseases of the digestive system
CPT/HCPCS: 36415; 80053; 82150; 82272; 85025; 93005; 93010; 96360; 99285

== ENCOUNTER 2019-02-05 15:34 | Outpatient (CLI) | END 2019-02-05 15:35 | disposition home or self-care (01) | LOC: RHC-LAB 15:34 | PROVIDERS: ATTEND General Practice | DX: K92.1 Melena (principal) | CPT/HCPCS: 82272 ==